=== PATIENT | female | born 1930 | race African-American/Black ===

== ENCOUNTER 2016-08-04 17:56 | Inpatient (IN) | payer OTHER, MEDICAID ==
[~2016-08-04] VITALS: Ht 154.9 cm; Wt 53.8 kg
[2016-08-04 19:12] LABS: Hematocrit 47.8 % (36.0-46.0); Hemoglobin 15.7 g/dL (12.2-16.2); Mean Corpuscular Hemoglobin 28.8 pg (28.0-32.0); Mean Corpuscular Hgb Conc. 32.7 g/dL (32.0-36.0); Mean Corpuscular Volume 87.8 fL (80.0-100.0); Mean Platelet Volume 8.7 fL (7.4-10.4); Platelet Count (auto) 133 10^3/uL (140-450); Red Cell Distribution Width 13.1 % (11.6-16.0); SUSPECT VIEW TRANSMISSION; White Blood Cell 3.4 10^3/uL (4.4-10.8)
[2016-08-04 19:18] LABS: Metamyelocytes % 0; Myelocytes % 0; Promyelocytes % 0; Reactive Lymphocytes 0
[2016-08-04 19:24] LABS: INR 1.11 (0.9-1.15); Partial Thromboplastin Time 26.8 sec (22.64-33.71); Prothrombin Time 11.4 sec (9.37-12.3)
[2016-08-04] MEDS ORDERED: IPRATROPIUM BROM 0.5 MG/2.5ML INH SOL NEB ONE (19:45)
[2016-08-04] MEDS ORDERED: ALBUTEROL SULF 2.5 MG/0.5ML(0.5%) NEB SOLN NEB ONE (19:45)
[2016-08-04] MEDS ORDERED: methylPREDNISolone SOD SUCC 125 MG/2 ML VL IV ONE (19:45)
[2016-08-04 19:47] LABS: B-Type Natriuretic Peptide 149.04 pg/mL (0-100); Temperature: 21.9 C (20.0-25.0)
[2016-08-04 19:50] LABS: Albumin 3.4 g/dL (3.4-5.0); Bilirubin, Total 0.3 mg/dL (0.2-1.0); Calcium 7.8 mg/dL (8.5-10.1); Magnesium 2.4 mg/dL (1.6-2.6); Total Protein 7.1 g/dL (6.4-8.2)
[2016-08-04 20:03] LABS: Anisocytosis Slight; Platelet Estimate Decreased; Stomatocytes Few
[2016-08-04] MEDS ORDERED: FAMOTIDINE (10MG/ML) 2ML VL IV ONE (20:15)
[2016-08-04] MEDS ORDERED: EPINEPHrine HCL 1 MG/1 ML AMP ONE (20:32)
[2016-08-04] MEDS ORDERED: diphenhdrAMINE HCL 50 MG/1 ML VL ONE (20:36)
[2016-08-04] MEDS ORDERED: EPINEPHrine HCL 1 MG/1 ML AMP SC ONE (20:45)
[2016-08-04] MEDS ORDERED: diphenhdrAMINE HCL 50 MG/1 ML VL IV ONE (21:00)
[2016-08-04] MEDS ORDERED: LEVOFLOXACIN 500MG 100 ML IV ONE (23:15)
[2016-08-04] MEDS ORDERED: DOCUSATE SOD 100 MG CAP PO PRN (23:15)
[2016-08-04] MEDS ORDERED: TEMAZEPAM 15 MG CAP PO PRN (23:15)
[2016-08-04] MEDS ORDERED: ACETAMINOPHEN 325 MG TAB PO PRN (23:15)
[2016-08-04] MEDS ORDERED: HYDROcodone-ACET 5/325MG TAB PO PRN (23:15)
[2016-08-04] MEDS ORDERED: IPRATROPIUM BROM 0.5 MG/2.5ML INH SOL NEB PRN (23:15)
[2016-08-05] VITALS (7 sets, daily range): BP systolic 103–196; BP diastolic 56–99
[2016-08-05] MEDS ORDERED: RANI1TAB6 PO (01:41)
[2016-08-05] MEDS ORDERED: LOSA100T27 PO (01:41)
[2016-08-05] MEDS ORDERED: FLUT100M IN (01:41)
[2016-08-05] MEDS ORDERED: ALBUAER3 IN (01:41)
[2016-08-05] MEDS ORDERED: ACLI1AER2 IN (01:41)
[2016-08-05 06:47] LABS: Basophils # (auto) 0 uL; Basophils % (auto) 0.4 % (0.0-2.0); Eosinophils # (auto) 0 uL; Hematocrit 48.2 % (36.0-46.0); Hemoglobin 15.6 g/dL (12.2-16.2); Lymphocytes # (auto) 0.6 uL; Lymphocytes % (auto) 12.3 % (10.0-50.0); Mean Corpuscular Hemoglobin 28.4 pg (28.0-32.0); Mean Corpuscular Hgb Conc. 32.3 g/dL (32.0-36.0); Mean Platelet Volume 9.1 fL (7.4-10.4); Monocytes # (auto) 0.1 uL; Monocytes % (auto) 2.9 % (0.0-12.0); Neutrophils # (auto) 4.1 uL; Neutrophils % (auto) 84.4 % (37.0-80.0); Platelet Count (auto) 138 10^3/uL (140-450); Red Cell Distribution Width 13.3 % (11.6-16.0); SUSPECT VIEW TRANSMISSION; White Blood Cell 4.9 10^3/uL (4.4-10.8)
[2016-08-05 07:09] LABS: Albumin 3.4 g/dL (3.4-5.0); BUN/Creatinine Ratio 21.5; Calcium 7.6 mg/dL (8.5-10.1); Potassium 4.7 mmol/L (3.5-5.1)
[2016-08-05 07:12] LABS: Bilirubin, Total 0.4 mg/dL (0.2-1.0); Total Protein 7.5 g/dL (6.4-8.2)
[2016-08-05] MEDS: ALBUTEROL SULF 2.5 MG/0.5ML(0.5%) NEB SOLN NEB PRN (07:26)
[2016-08-05] MEDS: LOSARTAN POTASSIUM 50 MG TAB PO SCH (09:44)
[2016-08-05] MEDS: ENOXAPARIN SOD 40 MG/0.4 ML SYRINGE SC SCH (09:45)
[2016-08-05] MEDS: FAMOTIDINE 20 MG TAB PO SCH (09:45)
[2016-08-05] MEDS ORDERED: FAMOTIDINE 20 MG TAB PO SCH (10:00)
[2016-08-05] MEDS: guaiFENesin-DEXTROMETHORPHAN 5ML SYR PO PRN ×3 (12:46→22:33)
[2016-08-05] MEDS: cloNIDine HCL 0.1 MG TAB PO PRN (16:41)
[2016-08-05] MEDS ORDERED: LEVOFLOXACIN 250MG 50 ML IV SCH (22:00)
[2016-08-05] MEDS: BUDESONIDE (INHALATION) 0.5 MG/2 ML NEB NEB SCH (22:00)
[2016-08-05] MEDS: DOXYCYCLINE 100 MG TAB PO SCH (22:30)
[2016-08-05] MEDS: ATORVASTATIN 20 MG TAB PO SCH (22:30)
[2016-08-06 05:00] VITALS: BP 130/62
[2016-08-06] MEDS: IPRATROPIUM BROM 0.5 MG/2.5ML INH SOL NEB PRN ×3 (06:05→11:00)
[2016-08-06] MEDS: ALBUTEROL SULF 2.5 MG/0.5ML(0.5%) NEB SOLN NEB SCH ×4 (06:07→19:10)
[2016-08-06] MEDS: BUDESONIDE (INHALATION) 0.5 MG/2 ML NEB NEB SCH ×2 (06:08→19:10)
[2016-08-06 08:06] VITALS: BP 112/54
[2016-08-06] MEDS ORDERED: predniSONE 20 MG TAB PO SCH (10:00)
[2016-08-06] MEDS: LOSARTAN POTASSIUM 50 MG TAB PO SCH (10:00)
[2016-08-06] MEDS: DOXYCYCLINE 100 MG TAB PO SCH ×2 (10:52→23:29)
[2016-08-06] MEDS: ENOXAPARIN SOD 40 MG/0.4 ML SYRINGE SC SCH (10:53)
[2016-08-06] MEDS: FAMOTIDINE 20 MG TAB PO SCH (10:53)
[2016-08-06] MEDS: guaiFENesin-DEXTROMETHORPHAN 5ML SYR PO PRN ×2 (16:01→23:30)
[2016-08-06 16:17] VITALS: BP 130/60
[2016-08-06] MEDS: IPRATROPIUM BROM 0.5 MG/2.5ML INH SOL NEB SCH (19:10)
[2016-08-06 22:00] VITALS: BP 136/62
[2016-08-06] MEDS: ATORVASTATIN 20 MG TAB PO SCH (23:30)
[2016-08-07] VITALS (9 sets, daily range): BP systolic 142–191; BP diastolic 58–86
[2016-08-07] MEDS: IPRATROPIUM BROM 0.5 MG/2.5ML INH SOL NEB SCH ×4 (06:28→19:02)
[2016-08-07] MEDS: ALBUTEROL SULF 2.5 MG/0.5ML(0.5%) NEB SOLN NEB SCH ×4 (06:28→19:02)
[2016-08-07] MEDS: guaiFENesin-DEXTROMETHORPHAN 5ML SYR PO PRN ×4 (06:41→21:57)
[2016-08-07] MEDS: ENOXAPARIN SOD 40 MG/0.4 ML SYRINGE SC SCH (09:36)
[2016-08-07] MEDS: DOXYCYCLINE 100 MG TAB PO SCH ×2 (09:36→21:57)
[2016-08-07] MEDS: LOSARTAN POTASSIUM 50 MG TAB PO SCH (09:37)
[2016-08-07] MEDS: FAMOTIDINE 20 MG TAB PO SCH (09:37)
[2016-08-07] MEDS: predniSONE 20 MG TAB PO SCH (09:37)
[2016-08-07] MEDS: BUDESONIDE (INHALATION) 0.5 MG/2 ML NEB NEB SCH ×2 (10:37→19:03)
[2016-08-07] MEDS: cloNIDine HCL 0.1 MG TAB PO PRN (16:42)
[2016-08-07] MEDS: hydrALAZINE HCL 20 MG/ML VL IV PRN ×2 (18:20→22:14)
[2016-08-07] MEDS: ATORVASTATIN 20 MG TAB PO SCH (21:57)
[2016-08-08 05:00] VITALS: BP 160/65
[2016-08-08] MEDS: ALBUTEROL SULF 2.5 MG/0.5ML(0.5%) NEB SOLN NEB SCH ×4 (06:49→22:15)
[2016-08-08] MEDS: IPRATROPIUM BROM 0.5 MG/2.5ML INH SOL NEB SCH ×4 (06:50→22:15)
[2016-08-08 09:00] VITALS: BP 162/73
[2016-08-08] MEDS: BUDESONIDE (INHALATION) 0.5 MG/2 ML NEB NEB SCH ×2 (10:13→22:16)
[2016-08-08] MEDS: ENOXAPARIN SOD 40 MG/0.4 ML SYRINGE SC SCH (10:36)
[2016-08-08] MEDS: predniSONE 20 MG TAB PO SCH (10:37)
[2016-08-08] MEDS: FAMOTIDINE 20 MG TAB PO SCH (10:38)
[2016-08-08] MEDS: DOXYCYCLINE 100 MG TAB PO SCH ×2 (10:38→21:08)
[2016-08-08] MEDS: guaiFENesin-DEXTROMETHORPHAN 5ML SYR PO PRN ×2 (10:40→17:06)
[2016-08-08] MEDS: LOSARTAN POTASSIUM 50 MG TAB PO SCH (10:40)
[2016-08-08] MEDS: ONDANSETRON HCL 4 MG/2 ML VIAL IV PRN (11:54)
[2016-08-08] MEDS: cloNIDine HCL 0.1 MG TAB PO PRN (11:56)
[2016-08-08 12:51] VITALS: BP 180/90
[2016-08-08 17:20] VITALS: BP 128/58
[2016-08-08] MEDS: ATORVASTATIN 20 MG TAB PO SCH (21:08)
[2016-08-08 21:38] VITALS: BP 146/71
[2016-08-09 05:26] VITALS: BP 164/62
[2016-08-09] MEDS: ALBUTEROL SULF 2.5 MG/0.5ML(0.5%) NEB SOLN NEB SCH ×4 (06:00→19:28)
[2016-08-09] MEDS: IPRATROPIUM BROM 0.5 MG/2.5ML INH SOL NEB SCH ×5 (06:00→22:13)
[2016-08-09 08:00] VITALS: BP 137/67
[2016-08-09] MEDS: BUDESONIDE (INHALATION) 0.5 MG/2 ML NEB NEB SCH ×2 (10:00→22:13)
[2016-08-09] MEDS: guaiFENesin-DEXTROMETHORPHAN 5ML SYR PO PRN ×3 (10:37→22:23)
[2016-08-09] MEDS: predniSONE 20 MG TAB PO SCH (10:39)
[2016-08-09] MEDS: FAMOTIDINE 20 MG TAB PO SCH (10:39)
[2016-08-09] MEDS: DOXYCYCLINE 100 MG TAB PO SCH ×2 (10:39→21:50)
[2016-08-09] MEDS: ENOXAPARIN SOD 40 MG/0.4 ML SYRINGE SC SCH (10:39)
[2016-08-09] MEDS: LOSARTAN POTASSIUM 50 MG TAB PO SCH (10:40)
[2016-08-09 12:00] VITALS: BP_SYST 117; BP_SYST 160; BP_DIAS 72; BP_DIAS 74
[2016-08-09 16:00] VITALS: BP 140/73
[2016-08-09 21:37] VITALS: BP 156/75
[2016-08-09] MEDS: ATORVASTATIN 20 MG TAB PO SCH (21:50)
[2016-08-09] MEDS: cloNIDine HCL 0.1 MG TAB PO PRN (21:51)
[2016-08-09] MEDS: ALBUTEROL SULF 2.5 MG/0.5ML(0.5%) NEB SOLN NEB PRN (22:14)
[2016-08-10 04:44] VITALS: BP 157/76
[2016-08-10] MEDS: IPRATROPIUM BROM 0.5 MG/2.5ML INH SOL NEB SCH ×4 (06:55→19:28)
[2016-08-10] MEDS: ALBUTEROL SULF 2.5 MG/0.5ML(0.5%) NEB SOLN NEB SCH ×4 (06:55→19:28)
[2016-08-10] MEDS: guaiFENesin-DEXTROMETHORPHAN 5ML SYR PO PRN ×3 (07:03→21:45)
[2016-08-10 08:00] VITALS: BP 159/93
[2016-08-10] MEDS: DOXYCYCLINE 100 MG TAB PO SCH ×2 (10:03→21:44)
[2016-08-10] MEDS: FAMOTIDINE 20 MG TAB PO SCH (10:03)
[2016-08-10] MEDS: ENOXAPARIN SOD 40 MG/0.4 ML SYRINGE SC SCH (10:03)
[2016-08-10] MEDS: predniSONE 20 MG TAB PO SCH (10:03)
[2016-08-10] MEDS: LOSARTAN POTASSIUM 50 MG TAB PO SCH (10:04)
[2016-08-10] MEDS: BUDESONIDE (INHALATION) 0.5 MG/2 ML NEB NEB SCH ×2 (10:15→19:28)
[2016-08-10 12:00] VITALS: BP 144/75
[2016-08-10 16:30] VITALS: BP 147/65
[2016-08-10] MEDS: Nutren Pulmonary 250ml Bottle PO SCH (18:00)
[2016-08-10 21:15] VITALS: BP 147/56
[2016-08-10 21:30] VITALS: BP 159/74
[2016-08-10] MEDS: ATORVASTATIN 20 MG TAB PO SCH (21:45)
[2016-08-11] VITALS (7 sets, daily range): BP systolic 104–178; BP diastolic 56–78
[2016-08-11] MEDS: hydrALAZINE HCL 20 MG/ML VL IV PRN (00:36)
[2016-08-11] MEDS: cloNIDine HCL 0.1 MG TAB PO PRN (05:15)
[2016-08-11] MEDS: IPRATROPIUM BROM 0.5 MG/2.5ML INH SOL NEB SCH ×3 (06:26→14:21)
[2016-08-11] MEDS: ALBUTEROL SULF 2.5 MG/0.5ML(0.5%) NEB SOLN NEB SCH ×3 (06:27→14:21)
[2016-08-11] MEDS: Nutren Pulmonary 250ml Bottle PO SCH ×3 (08:00→18:00)
[2016-08-11] MEDS: ONDANSETRON HCL 4 MG/2 ML VIAL IV PRN (09:53)
[2016-08-11] MEDS: DOXYCYCLINE 100 MG TAB PO SCH (09:53)
[2016-08-11] MEDS: ENOXAPARIN SOD 40 MG/0.4 ML SYRINGE SC SCH (09:53)
[2016-08-11] MEDS: FAMOTIDINE 20 MG TAB PO SCH (09:53)
[2016-08-11] MEDS: predniSONE 20 MG TAB PO SCH (09:54)
[2016-08-11] MEDS: LOSARTAN POTASSIUM 50 MG TAB PO SCH (09:54)
[2016-08-11] MEDS: BUDESONIDE (INHALATION) 0.5 MG/2 ML NEB NEB SCH (10:27)
== END 2016-08-11 18:46 | disposition home or self-care (01) | DRG 189 ==
LOC: ER 18:13 → WEST WING 18:14
PROVIDERS: ADMIT Internal Medicine; ATTEND Internal Medicine Pulmonary Disease
DX: J96.00 Acute respiratory failure, unspecified whether with hypoxia or hypercapnia (principal); J44.1 Chronic obstructive pulmonary disease with (acute) exacerbation; J45.31 Mild persistent asthma with (acute) exacerbation; M81.0 Age-related osteoporosis without current pathological fracture; I10 Essential (primary) hypertension; D72.829 Elevated white blood cell count, unspecified; M40.204 Unspecified kyphosis, thoracic region; E11.9 Type 2 diabetes mellitus without complications; Z90.49 Acquired absence of other specified parts of digestive tract
CPT/HCPCS: 36415; 36600; 71020; 80053; 82805; 83735; 83880; 84484; 85007; 85025; 85027; 85610; 85730; 93005; 94640; 96365; 96372; 96375; J0171; J1956; J2405; J3490